=== PATIENT | male | born 2005 | race Caucasian/White ===

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

== ENCOUNTER 2023-10-14 20:13 | Emergency (ER) | payer OTHER, SELFPAY ==
--- NOTE | ~2023-10-14 | CT_ITS ---
EXAMINATION: CT thoracic spine wo con DATE: 10/14/2023 21:27 INDICATION: Mid back pain. Fall. TECHNIQUE: Computed tomography (CT) of the thoracic spine was performed without intravenous contrast. Automated exposure control and iterative reconstruction technique were employed. The dose-length pro duct was 1732.12 mGy-cm. COMPARISON: None FINDINGS: There is 9 degrees dextrocurvature of upper thoracic spine. There is mild chronic anterior wedging of T8-L1 vertebral bodies. There are Schmorl's nodes at multiple levels. There is mildly decr eased disc height at T9-T10 and T11-T12. There is multilevel mild facet joint osteoarthritis. No neur al foraminal stenosis or central canal stenosis. IMPRESSION: 1. No acute fracture. 2. Mild thoracic spondylosis. Reviewed, dictated and finalized at location A.
--- NOTE | ~2023-10-14 | CT_ITS ---
EXAMINATION:CT diagnostic chest wo con DATE: 10/14/2023 21:27 INDICATION: Right posterior lateral rib pain. TECHNIQUE: Computed tomography (CT) of the chest was performed without intravenous contrast. Automate d exposure control and iterative reconstruction technique were employed. The dose-length product (DLP ) was 577.44 mGy-cm. COMPARISON: Chest CT 12/27/2021 FINDINGS: There is no pneumonia or pleural effusion. The heart size is normal. No pericardial effusio n. There is mild bilateral gynecomastia. There is no rib fracture. IMPRESSION: 1. No rib fracture. Reviewed, dictated and finalized at location A. IMPRESSION: 1. No rib fracture.
[2023-10-14 20:17] VITALS: BP 135/68; PULSE 85; RESP 20; TEMP 36.6; O2SAT 100
--- NOTE | 2023-10-14 20:39 | ED.FALL ---
HPI - Fall General Chief Complaint: Fall Stated Complaint: fall, back pain Time Seen by Provider: 10/14/23 20:17 Source: patient Mode of arrival: ambulatory Limitations: no limitations History of Present Illness HPI Narrative: this is a 18-year-old male who presents to the ED with chief complaint of back pain following a fall that happened yesterday. Reports that he got his shoe caught on the top step and he slid down about 6 steps. Reports pain to the mid back and right side of the lower back. Denies head injury or LOC. Denies any further sites of pain or injury. Denies troubles with ambulation. Related Data Home Medications Medication Instructions Recorded Confirmed divalproex 500 mg tablet,extended PO 02/04/20 06/15/22 release 24 hr methylphenidate HCl 54 mg mg PO 02/04/20 06/15/22 tablet,extended release 24 hr (Concerta) sertraline 100 mg tablet mg 02/04/20 06/15/22 Allergies Allergy/AdvReac Type Severity Reaction Status Date / Time aripiprazole [From Abilify] Allergy Other Verified 10/14/23 20:20 Review of Systems Review of Systems: All systems as dictated in [facility] Past Medical History Medical History History of ADHD History of depression Surgical History Surgical History No pertinent past surgical history Family History Family History Unknown Asthma Hypertension Depression Malignant neoplasm of prostate Social History Social History Smoking status: Current some day smoker Tobacco type: cigarettes and e-cigarettes/vaping Exam Narrative: GENERAL: Well-appearing, well-nourished, and in no acute distress. HEAD: Normocephalic, atraumatic. EYES: PERRLA and EOMI. ENT: Nares clear, no rhinorrhea or epistaxis. Mucous membranes moist. Oropharynx without tonsillar hypertrophy exudate or other lesions. NECK: Supple. No adenopathy or masses. CHEST: No respiratory distress. Clear to auscultation. No wheezes rales or rhonchi HEART: Regular rate and rhythm. No murmur heard. Normal peripheral pulses. ABDOMEN: Soft, nontender, nondistended, normal active bowel sounds. MSK: Mild bruising/ abrasion to the right posterolateral ribs/chest wall. Mild tenderness to the midthoracic spine but no other midline spinal tenderness present. SKIN: Warm, dry, no rash. Mild ecchymosis and bruising to the right mid back NEURO: Alert and oriented x4. No focal deficits. PSYCH: Normal mood and affect. Course Vital Signs Vital signs: Vital Signs Temperature 97.9 F 10/14/23 20:17 Pulse Rate 85 10/14/23 20:17 Respiratory Rate 20 10/14/23 20:17 Blood Pressure 135/68 10/14/23 20:17 Pulse Oximetry 100 10/14/23 20:17 Oxygen Delivery Room Air 10/14/23 20:17 Temperature 97.9 F 10/14/23 20:17 Pulse Rate 85 10/14/23 20:17 Respiratory Rate 20 10/14/23 20:17 Blood Pressure 135/68 10/14/23 20:17 Pulse Oximetry 100 10/14/23 20:17 Oxygen Delivery Room Air 10/14/23 20:17 MDM - Fall MDM Narrative Medical decision making narrative: This is a 18-year-old male who presents to the ED with chief complaint of back injury that occurred yesterday. Vitals are normal. Exam shows some bruising to the posterolateral ribs. CT imaging of the thoracic spine, chest are negative for any acute findings. Presentation consistent with rib bruise. He was given Tylenol Motrin here. Pt will be discharged in stable condition. Return precautions given and supportive measures discussed. Pt is understanding and agreeable with plan for discharge and follow-up with PCP. Discharge Plan Discharge Clinical Impression: Bruised rib Patient Disposition: Home, Self-Care Condition: Stable Instructions: Antibiotic Form Additional Instruction
[2023-10-14] MEDS: IBUPROFEN 400 MG TABLET 800 MG PO (20:56)
--- NOTE | 2023-10-14 21:10 | PC.NURSE ---
Patient taken to radiology via w/c at this time.
== END 2023-10-14 21:52 | disposition home or self-care (01) ==
PROVIDERS: Emergency Provider Physician Assistant; PCP Internal Medicine
DX: S20.211A Contusion of right front wall of thorax, initial encounter (principal); F90.9 Attention-deficit hyperactivity disorder, unspecified type; F32.A Depression, unspecified; W10.9XXA Fall (on) (from) unspecified stairs and steps, initial encounter
CPT/HCPCS: 71250; 72128; 99284; A9270

== ENCOUNTER 2023-11-26 23:37 | Emergency (ER) | payer OTHER, SELFPAY ==
[2023-11-26 23:51] VITALS: BP 143/86; PULSE 60; RESP 16; TEMP 36.3; O2SAT 99
--- NOTE | 2023-11-27 01:29 | PC.NURSE ---
Patient decided to leave without being seen by provider.
== END 2023-11-27 01:30 | disposition left against medical advice (07) ==
LOC: ANHED 11-27 01:58
PROVIDERS: PCP Internal Medicine
DX: R10.11 Right upper quadrant pain (principal)
CPT/HCPCS: 99199

== ENCOUNTER 2024-06-03 17:05 | Emergency (ER) | payer OTHER, SELFPAY ==
--- OUTSIDE RECORDS SUMMARY | 2024-06-03 17:08 | XMS_ITS ---
Author Organization [facility] Address [address] [place] [address] Care Team Providers Care Quality Control Head Name Role Phone Karsten Severino Primary Care Provider Allergies Allergen (clinical drug ingredient) Drug/Non Drug Allergy documented on EMR Reaction Allergy Type Onset Date Status aripiprazole Abilify Unknown Drug Allergy Acti ve REASON FOR VISIT Injection Medications Medication SIG (Take, Route, Frequency, Duration) Notes Start Date End Date Status FLUoxetine HCl 20 MG 1 capsule at bedtim e Orally Once a day for 30 days Active hydrOXYzine HCl 25 MG 1 tablet as needed for anxiety Orally Twice a day for 30 days Active Topiramate 50 MG 1.5 tablet Twice a day for 30 days Active Topiramate 25 MG TAKE 1 TABLET BY MOUTH TWICE DAILY for 30 Active Uzedy 75 MG/0.21ML 0.14 mL Subcutaneous Monthly for 30 days Can nursing be alerted when medication comes in so they can contact client to come in to get AL? 01/03/2024 Active Social History Sex Assigned At : Social History Observation Description Sex Assigned At Male Vital Signs Weight 321 lbs 05/17/2024 Blood pressure systolic 128 mm Hg 05/18/19 25 Blood pressure diastolic 80 mm Hg 025 Heart Rate 70 /min 05/17/2024 Oximetry 98 % 05/17/2024 Temperature 97.8 degrees Fahrenheit 05/18/19 25 Respiratory Rate 16 /min 05/17/2024 Encounters Encounter Location Date Provider Diagnosis [address] [place] [address] 05/17/2024 Karsten Severino Schizoaffective disorder, bipolar type F25.0 Assessments Encounter Date Diagnosis (ICD Code) Assessment Notes Treatment Notes Treatment Clinical Notes Section Notes 05/17/2024 Schizoaffective disorder, bipolar type (ICD-10 - F25.0) Plan Of Treatment Next Appt Details Provider Name:Karsten Kamara , 06/14/2024 02:40:00 PM, [address] [facility], [place], [address], Medications Administered Medication Instructions Date of Administration Dosage Notes Uzedy 05/17/2024 75 mg Manufact by [facility]. Pt felipe well. Given in left arm sub Q Progress Notes * Donnie HOLLIDAYDOB: [birth year] (18 yo M)Acc No.[id number]:05/17/2024 Progress Note Patient: Donnie LR Provider: Mary Severino DNP, PMHNP- :2005 A ge:18 Y S ex:Male Date:05/17/2024 [facility] Check In:09:14 AM [employer] Subjective: * Chief Complaints: * I njection * Medical History: * Surgical History: * Hospitalization/Major Diagno stic Procedure: * Medications: T akingTopiramate 25 MG Tablet TAKE 1 TABLET BY MOUTH TWICE DAILY Uzedy 75 MG/0.21ML Suspension Prefilled Syringe 0.14 mL Subcutaneous Monthly , Notes to Pharmacist: Can nursing be alerted when medication comes in so they can contact client to come in to get AL?Topiramate 50 MG Tablet 1.5 tablet Twice a day FLUoxetine HCl 20 MG Capsule 1 capsule at bedtime Orally Once a day hydrOXYzine HCl 25 MG Tablet 1 tablet as needed for anxiety Orally Twice a day Taking Topiramate 25 MG Tablet TAKE 1 TABLET BY MOUTH TWICE DAILY Taking Uzedy 75 MG/0.21ML Suspension Prefilled Syringe 0.14 mL Subcutaneous Monthly , Notes to Pharmacist: Can nursing be alerted when medication comes in so they can contact client to come in to get AL?Taking Topiramate 50 MG Tablet 1.5 tablet Twice a day Taking FLUoxetine HCl 20 MG Capsule 1 capsule at bedtime Orally Once a day Taking hydrOXYzine HCl 25 MG Tablet 1 tablet as needed for anxiety Orally Twice a day * Allergies: A bilifyno[Allergies Verified] Objective: * Vitals: I nitials: ws, Wt:321, BP:128/80, HR:70, Oxygen sat %:98, Temp:97.8, RR:16, Pain scale:0. Assessment: * Assessment: 1. S chizoaffective disorder, bipolar type - F25.0 Plan: * Treatment: * Therapeutic Injections: Uzedy : 75 mg (Dose No:1) (Route: Subcutaneous) given by Oma Sparks RN on subcutaneus * Procedure Codes: 9 6372 THER/PROPH/DIAG INJ, SC/IM * * Sign off status: Completed true * Provider: Mary Severino DNP, PMHNP- Date: 0 05/17/2024 Generated for Nancy monet/Shaka/Everetteitting on: 0 06/03/2024 05:07 PM CDT
--- OUTSIDE RECORDS SUMMARY | 2024-06-03 17:08 | XMS_ITS | Patient Health Record ---
Author Organization Formerly [facility] Address [address] [place] [address] Care Team Providers Care See Wheeler Name Role Phone Karsten Severino Primary Care Provider Debo Jacinto Unavailable [phone] Allergies Allergen (clinical drug ingredient) Drug/Non Drug Allergy documented on EMR Reaction Allergy Type Onset Date Status aripiprazole Abilify Unknown Drug Allergy Acti ve Results Component Value Reference Range Notes Valproic Acid (Depakote)(R), S Reviewed date:10/04/2023 04:14:24 PM Interpretation: Performing Lab:[facility], [address], [place], Phone - [phone], Director - Mihai Notes/Report: Valproic Acid (Depakote)(R),S 15 50-100 ug/m L Detection Limit = 4 <4 indicates None Detected . Toxicity may occur at levels of 100-500. Measurements of free unbound valproic acid may improve the assess- ment of clinical response. Reason For Referral No Information Medications Medication SIG (Take, Route, Frequency, Duration) [...] to get AL? 01/03/2024 Active Social History Tobacco Use: Social History Observation Description Date Details (start date - stop date) Current some da y smoker NA - NA Sex Assigned At : Social History Observation Description Sex Assigned At Male Tobacco Control (Standard) Question Answer Notes Tobacco use: Current some day smoker Additional Findings: Tobacco user Light cigarett e smoker (1-9 cigs/day) Problems Problem Type SNOMED Code ICD Code Onset Dates Problem Status W/U Status Risk Notes Problem Schizoaffective disorder, bipolar type (27631334) Schizoaffective disorder, bipolar type (F25.0) Active confirmed Problem Depression (301240381) Depression (F32.9) Active confirmed Problem Mood disorder (56757513) Mood disorder (F39) Active confirmed Problem Anxiety (62623034) Anxiety (F41.9) Active confi rmed Vital Signs Heart Rate 70 /min 05/17/2024 Temperature 97.8 degrees Fahrenheit 05/17/2024 Respiratory Rate 16 /min 05/17/2024 Blood pressure diastolic 80 mm Hg 05/17/2024 Oximetry 98 % 05/17/2024 Height 70 in 05/10/2024 Blood pressure systolic 128 mm Hg 05/17/2024 Weight 321 lbs 05/17/2024 BMI 46.94 kg/m2 05/10/2024 Encounters Encounter Location Date Provider Diagnosis [address] [address] 10/03/2023 Debo Jacinto [address] [address] 04/02/2024 Karsten Severino [address] [place] [address] 09/28/2023 Debo Jacinto Nutritional counseli ng Z71.3 ; Depression F32.9 ; Anxiety F41.9 ; Mood disorder F39 and Therapeutic drug monitoring Z51.[address] [address] 10/26/2023 Debo Jacinto Depression F32.9 ; Anxiety F41.9 and Mood disorder F39 [address] [place] [address] 12/20/2023 Karsten Severino Nutritional counseli ng Z71.3 ; Mood disorder F39 and Anxiety F41.[address] [place] [address] 01/03/2024 Karsten Severino Anxiety F41.9 ; Schizoaffective disorder, bipolar type F25.0 and Depression F32.[address] [address] 03/01/2024 Karsten Severino Schizoaffective disorder, bipolar type F25.0 and Anxiety F41.[address] [place] [address] 03/29/2024 Karsten Severino Schizoaffective disorder, bipolar type F25.0 ; Anxiety F41.9 and Depression F32.[address] [place] [address] 04/02/2024 Karsten Severino Schizoaffective disorder, bipolar type F25.[address] [address] 05/10/2024 Karsten Severino Schizoaffective disorder, bipolar type F25.0 and Anxiety F41.[address] [address] 05/17/2024 Karsten Severino Schizoaffective disorder, bipolar type F25.[address] [address] 10/04/2023 Debo Jacinto [address] [address] 01/03/2024 Karsten Severino [address] [address] 02/09/2024 Karsten Severino [address] [address] 02/24/2024 Karsten Severino Schizoaffective disorder, bipolar type F25.[address] [address] 03/02/2024 Karsten Severino [address] [place] [address] 03/29/2024 Karsten Severino Rash R21 [facility] [address] [place] [address] 04/02/2024 Karsten Severino [address] [place] [address] 05/11/2024 Karsten Severino [address] [place] [address] 05/30/2024 Karsten Severino Assessments Encounter Date Diagnosis (ICD Code) Assessment Notes Treatment Notes Treatment Clinical Notes Section Notes 09/28/2023 Nutritional counseling (ICD-10 - Z71.3) 10/26/2023 Depression (ICD-10 - F32.9) PHQ-9 score is 1 today, was 3 at last visit; Will refill Fluoxetine 20mg and 40mg to aid depression and anxiety. Pt denies SI/HI at this time. Pt reports that he has been tolerating med well. Denies side effects. 12/20/2023 Mood disorder (ICD-10 - F39) Last psychiatric provider's notes reviewed. Prior medical record reviewed. Client having violent and aggressive behaviors at home towards family, erradiate adherence to medications. Undefined mood disorder in records. Too new to this provider to define yet though high likelihood of bipolarity. MDQ at [facility] last year +5/13, though from interview this provider would likely rate it at more of +9/13. Father has bipolar disorder. Current tx plan has Prozac at 60 mg. Discussed taking this down to 20 mg, starting risperidone at 1 mg and adding topiramate to lessen risk of weight gain and further decrease aggression. 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 snf goal to transition to Uzedy AL if tolerates well with monitoring of prolactin and weight/metabol ics. Mother and client agreeable to this. Haldol AL secondary option should weight escalate too quickly. Hopeful low dose risperidone will hold mood and aggression as client has not been adherent to depakote for some time. 12/20/2023 Nutritional counseling (ICD-10 - Z71.3) Last psychiatric provider's notes reviewed. Prior medical record reviewed. Client having violent and aggressive behaviors at home towards family, erradiate adherence to medications. Undefined mood disorder in records. Too new to this provider to define yet though high likelihood of bipolarity. MDQ at al last year +06/26, though from interview this provider would likely rate it at more of +10/27. Father has bipolar disorder. Current tx plan has Prozac at 60 mg. Discussed taking this down to 20 mg, starting risperidone at 1 mg and adding topiramate to lessen risk of weight gain and further decrease aggression. 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 salvage determiner goal to transition to Uzedy AL if tolerates well with monitoring of prolactin and weight/metabol ics. Mother and client agreeable to this. Haldol AL secondary option should weight escalate too quickly. Hopeful low dose risperidone will hold mood and aggression as client has not been adherent to depakote for some time. 01/03/2024 Schizoaffective disorder, bipolar type (ICD-10 - F25.0) Client with lessened aggression and outbursts after starting risperidone and topiramate. Some minor decreases in depression. Client states most depression r/t loss of grandfather 10 years ago and I remember him a lot during the holidays . Client is agreeable to increase in risperidone to 2 mg (still having daily outbursts on 1 mg, though no longer violent). Client also agreeable to transitioning to AL form eventually as he is still having adherence issues with 70% adherence. Topamax increased to 50 mg BID to aide with aggression and appetite. Would caution any further dose escalation with topirmate to limit cognitive fogging for client. Mother of client told of this side effect and to call office if she sees any issues. 01/03/2024 Anxiety (ICD-10 - F41.9) Client with lessened aggression and outbursts after starting risperidone and topiramate. Some minor decreases in depression. Client states most depression r/t loss of grandfather 10 years ago and I remember him a lot during the holidays . Client is agreeable to increase in risperidone to 2 mg (still having daily outbursts on 1 mg, though no longer violent). Client also agreeable to transitioning to AL form eventually as he is still having adherence issues with 70% adherence. Topamax increased to 50 mg BID to aide with aggression and appetite. Would caution any further dose escalation with topirmate to limit cognitive fogging for client. Mother of client told of this side effect and to call office if she sees any issues. 02/24/2024 Schizoaffective disorder, bipolar type (ICD-10 - F25.0) 03/01/2024 Schizoaffective disorder, bipolar type (ICD-10 - F25.0) Schizoaffectiv e disorder, bipolar type - F25.0 (Primary), R/O bipolar disorder versus other psychotic disorder2.Anxi ety - F41.93.Depress ion - F32.9Client with lessened aggression and outbursts after starting risperidone and topiramate. Some minor decreases in depression. Client states most depression r/t loss of grandfather 10 years ago and I remember him a lot during the holidays . Client is agreeable to increase in risperidone to 2 mg (still having daily outbursts on 1 mg, though no longer violent). Client also agreeable to transitioning to AL form eventually as he is still having adherence issues with 70% adherence. Topamax increased to 50 mg BID to aide with aggression and appetite. Would caution any further dose escalation with topirmate to limit cognitive fogging for client. Mother of client told of this side effect and to call office if she sees any issues.Treatme nt 1.Schizoaffect lazaro disorder, bipolar type Start Uzedy Suspension Prefilled Syringe, 50 MG/0.14ML, 0.14 mL, Subcutaneous, Monthly, 30 days, 1, Refills 1, Notes to Pharmacist: Please let us know if not covered by insurance. Software is telling me it should be. Increase risperiDONE Tablet, 1 MG, 1 tablet at bedtime, Orally, Twice a day, 30 days, 60 Tablet, Refills 0 Increase Topiramate Tablet, 50 MG, 1 tablet, Orally, twice a day, 30 days, 60 Tablet, Refills 1 2.Depression Continue FLUoxetine HCl Capsule, 20 MG, 1 capsule at bedtime, Orally, Once a day, 30 days, 30 Capsule, Refills 1 03/29/2024 Schizoaffective disorder, bipolar type (ICD-10 - F25.0) Client with notably improvements to mood after starting Uzedy. He has been able to stay adherent to his other medications now and not have any anger episodes, frustration tolerance has improved. Client is agreeable to increase in Uzedy from 50 mg to 75 mg and decrease of oral risperidone from 1 mg BID to 1 mg once a day at bedtime with ultimate goal to wean off risperidone completely. Client also agreeable to increase in topiramate to see if helpful for appetite control. Directions on medication plan for next month printed out for client to share with his mother who is his main support. He is aware he will need to come back for his injection once PA approval has been granted. 03/29/2024 Rash (ICD-10 - R21) 04/02/2024 Schizoaffective disorder, bipolar type (ICD-10 - F25.0) 05/10/2024 Schizoaffective disorder, bipolar type (ICD-10 - F25.0) Client doing well overall. He states he would like to discontinue oral risperidone and see how he progresses on 75 mg Uzedy before increasing Uzedy dose. Has had no aggressive incidents at home and feels his mood swings are like normal now. Just normal sad, mad and stuff like that. Not extreme like it was before. No tx plan changes aside from this needed at this time. 05/17/2024 Schizoaffective disorder, bipolar type (ICD-10 - F25.0) 05/10/2024 Anxiety (ICD-10 - F41.9) Client doing well overall. He states he would like to discontinue oral risperidone and see how he progresses on 75 mg Uzedy before increasing Uzedy dose. Has had no aggressive incidents at home and feels his mood swings are like normal now. Just normal sad, mad and stuff like that. Not extreme like it was before. No tx plan changes aside from this needed at this time. 10/26/2023 Anxiety (ICD-10 - F41.9) Will continue Hydroxyzine PRN anxiety. Pt reports that he has been tolerating medication well. . Will consider starting BuSpar if anxiety continues 03/29/2024 Anxiety (ICD-10 - F41.9) Client with notably improvements to mood after starting Uzedy. He has been able to stay adherent to his other medications now and not have any anger episodes, frustration tolerance has improved. Client is agreeable to increase in Uzedy from 50 mg to 75 mg and decrease of oral risperidone from 1 mg BID to 1 mg once a day at bedtime with ultimate goal to wean off risperidone completely. Client also agreeable to increase in topiramate to see if helpful for appetite control. Directions on medication plan for next month printed out for client to share with his mother who is his main support. He is aware he will need to come back for his injection once PA approval has been granted. 03/01/2024 Anxiety (ICD-10 - F41.9) Schizoaffectiv e disorder, bipolar type - F25.0 (Primary), R/O bipolar disorder versus other psychotic disorder2.Anxi ety - F41.93.Depress ion - F32.9Client with lessened aggression and outbursts after starting risperidone and topiramate. Some minor decreases in depression. Client states most depression r/t loss of grandfather 10 years ago and I remember him a lot during the holidays . Client is agreeable to increase in risperidone to 2 mg (still having daily outbursts on 1 mg, though no longer violent). Client also agreeable to transitioning to AL form eventually as he is still having adherence issues with 70% adherence. Topamax increased to 50 mg BID to aide with aggression and appetite. Would caution any further dose escalation with topirmate to limit cognitive fogging for client. Mother of client told of this side effect and to call office if she sees any issues.Treatme nt 1.Schizoaffect lazaro disorder, bipolar type Start Uzedy Suspension Prefilled Syringe, 50 MG/0.14ML, 0.14 mL, Subcutaneous, Monthly, 30 days, 1, Refills 1, Notes to Pharmacist: Please let us know if not covered by insurance. Software is telling me it should be. Increase risperiDONE Tablet, 1 MG, 1 tablet at bedtime, Orally, Twice a day, 30 days, 60 Tablet, Refills 0 Increase Topiramate Tablet, 50 MG, 1 tablet, Orally, twice a day, 30 days, 60 Tablet, Refills 1 2.Depression Continue FLUoxetine HCl Capsule, 20 MG, 1 capsule at bedtime, Orally, Once a day, 30 days, 30 Capsule, Refills 1 01/03/2024 Depression (ICD-10 - F32.9) Client with lessened aggression and outbursts after starting risperidone and topiramate. Some minor decreases in depression. Client states most depression r/t loss of grandfather 10 years ago and I remember him a lot during the holidays . Client is agreeable to increase in risperidone to 2 mg (still having daily outbursts on 1 mg, though no longer violent). Client also agreeable to transitioning to AL form eventually as he is still having adherence issues with 70% adherence. Topamax increased to 50 mg BID to aide with aggression and appetite. Would caution any further dose escalation with topirmate to limit cognitive fogging for client. Mother of client told of this side effect and to call office if she sees any issues. 12/20/2023 Anxiety (ICD-10 - F41.9) Last psychiatric provider's notes reviewed. Prior medical record reviewed. Client having violent and aggressive behaviors at home towards family, erradiate adherence to medications. Undefined mood disorder in records. Too new to this provider to define yet though high likelihood of bipolarity. MDQ at al last year +06/26, though from interview this provider would likely rate it at more of +/13. Father has bipolar disorder. Current tx plan has Prozac at 60 mg. Discussed taking this down to 20 mg, starting risperidone at 1 mg and adding topiramate to lessen risk of weight gain and further decrease aggression. 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 salvage determiner goal to transition to Uzedy AL if tolerates well with monitoring of prolactin and weight/metabol ics. Mother and client agreeable to this. Haldol AL secondary option should weight escalate too quickly. Hopeful low dose risperidone will hold mood and aggression as client has not been adherent to depakote for some time. 09/28/2023 Depression (ICD-10 - F32.9) PHQ-9 score is 3 today, was 7 at last visit; Will refill Fluoxetine 20mg and 40mg to aid depression and anxiety. Pt reports that he has been taking 20mg and 40mg of FLuoxetine and does not want it change dose at this time. Pt denies SI/HI at this time. Pt reports that he has been tolerating med well. Denies side effects. 10/26/2023 Mood disorder (ICD-10 - F39) Will continue Depakote to aid moods; Depakote level was low at 15 on 10/03/2023 but pt reports that he does not want to increase dose at this time. DD: Bipolar Disorder, Autism, Schizophrenia. Pt denies SI/HI at this time 09/28/2023 Anxiety (ICD-10 - F41.9) Will continue Hydroxyzine PRN anxiety. Pt reports that he has been tolerating medication well. . Will consider starting BuSpar if anxiety continues 03/29/2024 Depression (ICD-10 - F32.9) Client with notably improvements to mood after starting Uzedy. He has been able to stay adherent to his other medications now and not have any anger episodes, frustration tolerance has improved. Client is agreeable to increase in Uzedy from 50 mg to 75 mg and decrease of oral risperidone from 1 mg BID to 1 mg once a day at bedtime with ultimate goal to wean off risperidone completely. Client also agreeable to increase in topiramate to see if helpful for appetite control. Directions on medication plan for next month printed out for client to share with his mother who is his main support. He is aware he will need to come back for his injection once PA approval has been granted. 09/28/2023 Mood disorder (ICD-10 - F39) Will continue Depakote to aid moods; Depakote level was low at 31 on 02/25/2023 but pt reports that he has not been taking it daily; will recheck Depakote level at this time. DD: Bipolar Disorder, Autism, Schizophrenia. Pt denies SI/HI at this time 09/28/2023 Therapeutic drug monitoring (ICD-10 - Z51.81) 09/28/2023 Other Discussed treat ment planDiscussed sleep hygiene and caffeine intakeReturn to clinic 4 weeksDepakote level ordered Encouraged counselingDiscussed treatment plan; patient is agreeable and accepting of treatment plan. Patient denies further questions or concerns at this time. The Patient/Guardian asked appropriate questions, appeared to understand the answers, and decided to accept the treatment and continue being followed.The Patient/Guardian is aware of the need to contact the office or return for an earlier appointment if any problems or concerns arise. May also contact the 24-hour crisis hotline ([facility]), refer to the closest emergency room or call 911 if new symptoms arise of existing symptoms worsen; the Patient/Guardian is aware that this would apply to symptoms such as: suicidal ideation, homicidal ideation, high risk behaviors, manic symptoms, psychotic symptoms, physical symptoms, or any other symptoms that may be dangerous to self or others. 10/26/2023 Other Discussed treatment planDiscussed sleep hygiene and caffeine intakeReturn to clinic 4 weeksEncouraged counselingDiscussed treatment plan; patient is agreeable and accepting of treatment plan. Patient denies further questions or concerns at this time. The Patient/Guardian asked appropriate questions, appeared to understand the answers, and decided to accept the treatment and continue being followed.The Patient/Guardian is aware of the need to contact the office or return for an earlier appointment if any problems or concerns arise. May also contact the 24-hour crisis hotline ([facility]), refer to the closest emergency room or call 911 if new symptoms arise of existing symptoms worsen; the Patient/Guardian is aware that this would apply to symptoms such as: suicidal ideation, homicidal ideation, high risk behaviors, manic symptoms, psychotic symptoms, physical symptoms, or any other symptoms that may be dangerous to self or others. Patient made aware that this provider will be leaving [facility] as of 11/09/2023, and she will be transitioned to a new provider at that time. 12/20/2023 Other Discussed sleep hygiene and caffeine intake with encouragement to limit electronic devices an hour before bed and to limit caffeine after 3:00pm. Exercise benefits for mood and health discussed. Psychoeducation regarding psychiatric illness provided. Client was educated about risks and benefits of medication, alternatives to medication, off label uses of medication, suicidal ideation with SSRIs, self-administration and compliance with medication along with how to safely store medication. Verbal informed consent obtained. Client agrees to return sooner if symptoms worsen or if suicidal or homicidal ideations occur. Client has the phone number to the 24-hour crisis line at [facility]. Questions addressed. Client verbalized understanding of all information and is agreeable to treatment plan. Last psychiatric provider's notes reviewed. Prior medical record reviewed. Client having violent and aggressive behaviors at home towards family, erradiate adherence to medications. Undefined mood disorder in records. Too new to this provider to define yet though high likelihood of bipolarity. MDQ at [facility] last year +06/26, though from interview this provider would likely rate it at more of +10/27. Father has bipolar disorder. Current tx plan has Prozac at 60 mg. Discussed taking this down to 20 mg, starting risperidone at 1 mg and adding topiramate to lessen risk of weight gain and further decrease aggression. 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 salvage determiner goal to transition to Uzedy AL if tolerates well with monitoring of prolactin and weight/metabol ics. Mother and client agreeable to this. Haldol AL secondary option should weight escalate too quickly. Hopeful low dose risperidone will hold mood and aggression as client has not been adherent to depakote for some time. 01/03/2024 Other Discussed sleep hygiene and caffeine intake with encouragement to limit electronic devices an hour before bed and to limit caffeine after 3:00pm. Exercise benefits for mood and health discussed. Psychoeducation regarding psychiatric illness provided. Client was educated about risks and benefits of medication, alternatives to medication, off label uses of medication, suicidal ideation with SSRIs, self-administration and compliance with medication along with how to safely store medication. Verbal informed consent obtained. Client agrees to return sooner if symptoms worsen or if suicidal or homicidal ideations occur. Client has the phone number to the 24-hour crisis line at [facility]. Questions addressed. Client verbalized understanding of all information and is agreeable to treatment plan. Client with lessened aggression and outbursts after starting risperidone and topiramate. Some minor decreases in depression. Client states most depression r/t loss of grandfather 10 years ago and I remember him a lot during the holidays . Client is agreeable to increase in risperidone to 2 mg (still having daily outbursts on 1 mg, though no longer violent). Client also agreeable to transitioning to AL form eventually as he is still having adherence issues with 70% adherence. Topamax increased to 50 mg BID to aide with aggression and appetite. Would caution any further dose escalation with topirmate to limit cognitive fogging for client. Mother of client told of this side effect and to call office if she sees any issues. 03/29/2024 Other Discussed sleep hygiene and caffeine intake with encouragement to limit electronic devices an hour before bed and to limit caffeine after 3:00pm. Exercise benefits for mood and health discussed. Psychoeducation regarding psychiatric illness provided. Client was educated about risks and benefits of medication, alternatives to medication, off label uses of medication, suicidal ideation with SSRIs, self-administration and compliance with medication along with how to safely store medication. Verbal informed consent obtained. Client agrees to return sooner if symptoms worsen or if suicidal or homicidal ideations occur. Client has the phone number to the 24-hour crisis line at [facility]. Questions addressed. Client verbalized understanding of all information and is agreeable to treatment plan. Client with notably improvements to mood after starting Uzedy. He has been able to stay adherent to his other medications now and not have any anger episodes, frustration tolerance has improved. Client is agreeable to increase in Uzedy from 50 mg to 75 mg and decrease of oral risperidone from 1 mg BID to 1 mg once a day at bedtime with ultimate goal to wean off risperidone completely. Client also agreeable to increase in topiramate to see if helpful for appetite control. Directions on medication plan for next month printed out for client to share with his mother who is his main support. He is aware he will need to come back for his injection once PA approval has been granted. 05/10/2024 Other Discussed sleep hygiene and caffeine intake with encouragement to limit electronic devices an hour before bed and to limit caffeine after 3:00pm. Exercise benefits for mood and health discussed. Psychoeducation regarding psychiatric illness provided. Client was educated about risks and benefits of medication, alternatives to medication, off label uses of medication, suicidal ideation with SSRIs, self-administration and compliance with medication along with how to safely store medication. Verbal informed consent obtained. Client agrees to return sooner if symptoms worsen or if suicidal or homicidal ideations occur. Client has the phone number to the 24-hour crisis line at [facility]. Questions addressed. Client verbalized understanding of all information and is agreeable to treatment plan. Client doing well overall. He states he would like to discontinue oral risperidone and see how he progresses on 75 mg Uzedy before increasing Uzedy dose. Has had no aggressive incidents at home and feels his mood swings are like normal now. Just normal sad, mad and stuff like that. Not extreme like it was before. No tx plan changes aside from this needed at this time. Plan Of Treatment Next Appt Details Provider Name:Karsten dove, 06/14/2024 02:40:00 PM, [address] [facility] [address], [place], [address], Insurance Providers Payer Name Payer Address Payer Phone Subscriber Number Group Number Insured Name Patient Relationship to Insured Coverage Start Date Coverage End Date [facility] Claims Department [address] [place] [address] [phone] [id number] RonRuss Donnie gongora Self - patient is the insured [facility] [address] [place] [address] [phone] [id number] [facility] fransiscaDonnie Self - patient is the insured 3 Medications Administered Medication Instructions Date of Administration Dosage Notes Uzedy 03/01/2024 50 mg Uzedy 04/02/2024 75 mg Uzedy 05/17/2024 75 mg Manufact by Julio solano. Pt felipe well. Given in left arm sub Q Medical (General) History Medical History History ICD Code overweight Elevated B/P Hospitalization History Reason Date(Month/Year) [facility]
--- OUTSIDE RECORDS SUMMARY | 2024-06-03 17:08 | XMS_ITS | Data Portability ---
Author Organization [facility], Main Office Address [address] [place] [address] Assessment Encounter Date Assessment Date Assessment LastModified by Organization Details LastModified Time 01/19/2024 01/19/2024 upper abdominal pain associated with meals. Gallbladder ultrasound shows sludge but no other abnormalities. We will schedule HIDA scan to further evaluate. Patient will follow-up after testing Not available 01/19/2024 12:46:17 02/16/2024 02/16/2024 upper abdominal pain and discomfort for months. Recent episode appears to be related GI virus. I did scan with ejection fraction less than 0%. Consistent with gallbladder dyskinesia. Had discussion with patient and his mother as to the plan of care and we will schedule for robotic assisted possible open cholecystectom y. Risks and benefits were discussed with the patient and family. Risks include bleeding, infection bile ducts/bowel injuries bile leak Not available 02/16/2024 11:18:40 Plan of Treatment Reminders Order Date Submit Date Provider Last Modified By Organization Details Last Modified Time Details Appointments None record ed. Lab None record ed. Referral None record ed. Procedures None record ed. Surgeries None record ed. Imaging None record ed. Medication Orders None record ed. Patient TargetsNo targets recorded. Patient InstructionsNo instructions recorded. Reason for Referral None Reported. Results Created Date Observation Date Name Description Value Unit Range Abnormal Flag Note LastModifiedBy Organization Detail LastModifiedTime 04/05/1904/05/2024 CBC/C OMPLE TE BLD COUNT W/DIF F white blood cells 8.1 x10'3 /uL 4.2-[address] [facility] (Lab) [address] [place], [address], 04/05/2024 15:35:36 04/05/19 25 04/05/2024 CBC/C OMPLE TE BLD COUNT W/DIF F red blood cells 4.98 x10'6 /uL 4.10-[address] [facility] (Lab) [address] [place], [address], 04/05/2024 15:35:36 04/05/19 25 04/05/2024 CBC/C OMPLE TE BLD COUNT W/DIF F hemoglobin 15.3 g/dL 13.2-[address] [facility] (Lab) [address] [place], [address], 04/05/2024 15:35:36 04/05/19 25 04/05/2024 CBC/C OMPLE TE BLD COUNT W/DIF F hematocrit 44.3 % 39.3-[address] [facility] (Lab) [address] [place], [address], 04/05/2024 15:35:36 04/05/19 25 04/05/2024 CBC/C OMPLE TE BLD COUNT W/DIF F mean red cell volume 89.0 fL 80.0-[address] [facility] (Lab) [address] [place], [address], 04/05/2024 15:35:36 04/05/19 25 04/05/2024 CBC/C OMPLE TE BLD COUNT W/DIF F mean red cell hemoglobin 30.7 pg 27.0-[address] [facility] (Lab) [address] [place], [address], 04/05/2024 15:35:36 04/05/19 25 04/05/2024 CBC/C OMPLE TE BLD COUNT W/DIF F mean RBC HGB concentratio n 34.5 g/dL 31.0-[address] [facility] (Lab) [address] [place], [address], 04/05/2024 15:35:36 04/05/19 25 04/05/2024 CBC/C OMPLE TE BLD COUNT W/DIF F red cell distribution width 13.2 % 11.8-[address] [facility] (Lab) [address] [place], [address], 04/05/2024 15:35:36 04/05/19 25 04/05/2024 CBC/C OMPLE TE BLD COUNT W/DIF F platelets 257 x10'3 /uL 150-[address] [facility] (Lab) [address] [place], [address], 04/05/2024 15:35:36 04/05/19 25 04/05/2024 CBC/C OMPLE TE BLD COUNT W/DIF F mean platelet volume 9.9 fL 9.0-[address] [facility] (Lab) [address] [place], [address], 04/05/2024 15:35:36 04/05/19 25 04/05/2024 CBC/C OMPLE TE BLD COUNT W/DIF F neutrophils 53.1 % 39.0-[address] [facility] (Lab) [address] [place], [address], 04/05/2024 15:35:36 04/05/19 25 04/05/2024 CBC/C OMPLE TE BLD COUNT W/DIF F lymphocytes 32.5 % 16.0-[address] [facility] (Lab) [address] [place], [address], 04/05/2024 15:35:36 04/05/19 25 04/05/2024 CBC/C OMPLE TE BLD COUNT W/DIF F monocytes 9.5 % 5.0-[address] [facility] (Lab) [address] [place], [address], 04/05/2024 15:35:36 04/05/19 25 04/05/2024 CBC/C OMPLE TE BLD COUNT W/DIF F eosinophils 4.3 % 1.0-7. [address] [facility] (Lab) [address] [place], [address], 04/05/2024 15:35:36 04/05/19 25 04/05/2024 CBC/C OMPLE TE BLD COUNT W/DIF F basophils 0.5 % 0.0-2. [address] [facility] (Lab) [address] [place], [address], 04/05/2024 15:35:36 04/05/19 25 04/05/2024 CBC/C OMPLE TE BLD COUNT W/DIF F immature granulocytes 0.1 % 0.00-[address] [facility] (Lab) [address] [place], [address], 04/05/2024 15:35:36 04/05/19 25 04/05/2024 CBC/C OMPLE TE BLD COUNT W/DIF F neutrophils, absolute count 4.30 x10'3 /uL 1.5-8. [address] [facility] (Lab) [address] [place], [address], 04/05/2024 15:35:36 04/05/19 25 04/05/2024 CBC/C OMPLE TE BLD COUNT W/DIF F lymphocytes, absolute count 2.63 x10'3 /uL 1.07-[address] [facility] (Lab) [address] [place], [address], 04/05/2024 15:35:36 04/05/19 25 04/05/2024 CBC/C OMPLE TE BLD COUNT W/DIF F monocytes, absolute count 0.77 x10'3 /uL 0.29-[address] [facility] (Lab) [address] [place], [address], 04/05/2024 15:35:36 04/05/19 25 04/05/2024 CBC/C OMPLE TE BLD COUNT W/DIF F eosinophils, absolute count 0.35 x10'3 /uL 0.02-[address] [facility] (Lab) [address] [place], [address], 04/05/2024 15:35:36 04/05/19 25 04/05/2024 CBC/C OMPLE TE BLD COUNT W/DIF F basophils, absolute count 0.04 x10'3 /uL 0.01-[address] [facility] (Lab) [address] [place], [address], 04/05/2024 15:35:36 04/05/19 25 04/05/2024 CBC/C OMPLE TE BLD COUNT W/DIF F immature granulocytes ,absolute 0.01 x10'3 /uL 0.00-[address] [facility] (Lab) [address] [place], [address], 04/05/2024 15:35:36 04/05/19 25 04/05/2024 CBC/C OMPLE TE BLD COUNT W/DIF F nucleated red blood cells 0.0 % -0 Not Available [facility] (Lab) [address] [place], [address], 04/05/2024 15:35:36 04/05/19 25 04/05/2024 CBC/C OMPLE TE BLD COUNT W/DIF F NRBC# 0.00 x10'3 /uL Not Available [facility] (Lab) [address] [place], [address], 04/05/2024 15:35:36 04/05/19 25 04/05/2024 COMPR EHENS JAMARCUS METAB OLIC PANEL sodium 139 mmol/ L 137-[address] [facility] (Lab) [address] [place], [address], 04/05/2024 16:17:54 04/05/19 25 04/05/2024 COMPR EHENS JAMARCUS METAB OLIC PANEL potassium 4.3 mmol/ L 3.5-5. [address] [facility] (Lab) [address] [place], [address], 04/05/2024 16:17:54 04/05/19 25 04/05/2024 COMPR EHENS JAMARCUS METAB OLIC PANEL chloride 108 mmol/ L 98-[address] [facility] (Lab) [address] [place], [address], 04/05/2024 16:17:54 04/05/19 25 04/05/2024 COMPR EHENS JAMARCUS METAB OLIC PANEL carbon dioxide 23 mmol/ L 22-[address] [facility] (Lab) [address] [place], [address], 04/05/2024 16:17:54 04/05/19 25 04/05/2024 COMPR EHENS JAMARCUS METAB OLIC PANEL anion gap 12.3 mmol/ L 14-[address] [facility] (Lab) [address] [place], [address], 04/05/2024 16:17:54 04/05/19 25 04/05/2024 COMPR EHENS JAMARCUS METAB OLIC PANEL glucose 93 mg/dL 70-[address] [facility] (Lab) [address] [place], [address], 04/05/2024 16:17:54 04/05/19 25 04/05/2024 COMPR EHENS JAMARCUS METAB OLIC PANEL BUN 14 mg/dL 8-[address] [facility] (Lab) [address] [place], [address], 04/05/2024 16:17:54 04/05/19 25 04/05/2024 COMPR EHENS JAMARCUS METAB OLIC PANEL creatinine 1.01 mg/dL 0.66-[address] [facility] (Lab) [address] [place], [address], 04/05/2024 16:17:54 04/05/19 25 04/05/2024 COMPR EHENS JAMARCUS METAB OLIC PANEL GFR >60 Refer ence Range : [place] ge GFR Healt hy Adult : >60 mL/mi n/1.7 3 m2 Chron ic Kidne y Disea se: 15-60 mL/mi n/1.7 3 m2 Kidne y Failu re: <15/m L/min /1.73 m2 www.n iddk. nih.g ov The MDRD study equat ion has not been valid ated in child nakia <18 years of age; pregn ant women ; the elder ly >85 years of age; or in some racia l or ethni c subgr oups, such as Hisut nics. Outsi de the valid ated melissa eters , estim ated GFR is less accur ate, requi ring clini hali judgm ent on a case- by-ca se basis . Clini hali inter preta tion for other races and ages must be made by the clini jagjit. The MDRD study equat ion has not been valid ated for the evalu ation of serum creat inine relat ed to nutri dhara l statu s or medic ation usage . For perso ns <18 years of age, a pedia tric GFR calcu lator is avail able on the F websi te: https ://gavino w.kid atiya.o rg/pr ofess ional s/kdo qi/gf r_cal culat or Not Available [facility] (Lab) [address] [place], [address], 04/05/2024 16:17:54 04/05/19 25 04/05/2024 COMPR EHENS JAMARCUS METAB OLIC PANEL alkaline phosphatase 97 U/L 38-126 Not Available [facility] (Lab) [address] [place], [address], 04/05/2024 16:17:54 04/05/19 25 04/05/2024 COMPR EHENS JAMARCUS METAB OLIC PANEL alanine aminotransfe rase 178 U/L 0-50 high Not Available [facility] (Lab) [address] [place], [address], 04/05/2024 16:17:54 04/05/19 25 04/05/2024 COMPR EHENS JAMARCUS METAB OLIC PANEL aspartate aminotransfe rase 84 U/L 13-38 high Not Available [facility] (Lab) [address] [place], [address], 04/05/2024 16:17:54 04/05/19 25 04/05/2024 COMPR EHENS JAMARCUS METAB OLIC PANEL bilirubin, total 0.90 mg/dL 0.20-[address] [facility] (Lab) [address] [place], [address], 04/05/2024 16:17:54 04/05/19 25 04/05/2024 COMPR EHENS JAMARCUS METAB OLIC PANEL calcium 10.2 mg/dL 8.4-[address] [facility] (Lab) [address] [place], [address], 04/05/2024 16:17:54 04/05/19 25 04/05/2024 COMPR EHENS JAMARCUS METAB OLIC PANEL total protein 7.5 g/dL 6.3-8. [address] [facility] (Lab) [address] [place], [address], 04/05/2024 16:17:54 04/05/19 25 04/05/2024 COMPR EHENS JAMARCUS METAB OLIC PANEL albumin 4.8 g/dL 3.4-5. [address] [facility] (Lab) [address] [place], [address], 04/05/2024 16:17:54 04/05/19 25 04/05/2024 COMPR EHENS JAMARCUS METAB OLIC PANEL globulin 2.7 g/dL 2.6-4. [address] [facility] (Lab) [address] [place], [address], 04/05/2024 16:17:54 04/05/19 25 04/05/2024 COMPR EHENS JAMARCUS METAB OLIC PANEL A/G ratio 1.8 ratio 1.0-2. [address] [facility] (Lab) [address] [place], [address], 04/05/2024 16:17:54 01/24/20 24 01/24/2024 NM, hepat obili madina scan, w/pha rm [facility] [address] [place] [address] [phone] Patien t Name: DONNIE SELLERS Access ion #: [id number] Sex: M : 2005 4 Dictat ed By: Pebbles pang Attend ing Physic apollo: PAYAL CARLIN Orderi Physic apollo: PAYAL CARLIN Exam Date: 2023 09:47 AM Exam Name: NM HEPATO BILIAR Y W PHARM Admitt ing Diagno sis(es ): CLINIC AL INFORM ATION: 18 years old, Male; abdomi nal pain. TECHNI QUE: 8.5 mCi of [place] ec were admini stered intrav enousl y. Images of the upper abdome n were obtain ed at 5 minute interv als up to a total time of 60 minute s. Subseq uently , 2.9 mcg CCK was admini stered intrav enousl y, as per protoc ol, and repeat dynami c anteri or region al images of the liver were obtain ed over an additi onal 30 minute s. A region of intere st was drawn around the gallbl adder, from which a gallbl adder ejecti on fracti on was obtain ed. Time/a ctivit y profil e curves were genera beverly. COMPAR MATTHEW: None FINDIN GS: There is prompt gallbl adder visual izatio n. There is prompt excret ion of activi ty from the biliar y ductal system into the small bowel. There is no eviden ce of acute cholec ystiti s. The gallbl adder ejecti on fracti on is abnorm al and is calcul ated to be -1.2%. IMPRES YOSSI: 1. No scinti graphi c eviden ce of acute cholec ystiti s. 2. Abnorm al gallbl adder ejecti on fracti on consis tent with functi onal gallbl adder disord er in the approp riate clinic al settin g. Electr onical ly Signed by: Pebbles pang at 2023 12:55: 07 PM Page [address] (Imaging) [address] [place], [address], 01/25/2024 14:51:45 01/24/20 24 01/24/2024 imagi ng/di agnos tic resul t No observ ation record ed. [address] [place], [address], 01/25/2024 14:52:14 Result Notes None recorded. Problems Name Problem SNOMED Code Status Onset Date Resolution Date Notes Provider Name and Address Organization Details Recorded Time Anxiety disorder 907259011 Active 2019 Not Available [facility] 3 16:11:29 Fracture of phalanx of foot 80044390 Active 2019 Not Available [facility] 3 16:11:29 Attention deficit hyperactivity disorder 120890901 Active 2019 Not Available [facility] 3 16:11:29 Abdominal pain 14709127 Active 2023 Rashel robles MD [address] [facility], [place], [address] , [facility] 4 15:49:53 Biliary dyskinesia 526673394 Active 2024 Rashel robles MD [address] [facility], [facility] [address], [place], [address] , [facility] [employer] 15:07:40 Problem Notes None recorded. Procedures Surgical History None recorded. Imaging Results Imaging Date Name Status LastModified by Organization Details LastModified Time 01/24/2024 NM, hepatobiliary scan, w/pharm completed [address] (Imaging) [address] [place], [address], 01/25/2024 14:51:45 01/24/2024 imaging/diagnosti c result completed [address] [place], [address], 01/25/2024 14:52:14 Procedure Notes None recorded. Medical Equipment None Reported. Allergies No known drug allergies Medications Name Sig Start Date Stop Date Status Note LastModified by Organization Details LastModified Time azithromyci n 250 mg tablet 10/03 completed Not Available Not Available Not Available sertraline 100 mg tablet TK 2 TS PO QD BEFORE A MEAL active Not Available Not Available No t Available bacitracin 500 unit/gram topical ointment APPLY TO AFFECTED AREA TID FOR 14 DAYS 10/03 completed Not Available Not Available Not Available Concerta 54 mg tablet,exte nded release TK 1 T PO QAM active Not Available Not Available No t Available cephalexin 500 mg capsule 10/03 completed Not Available Not Available Not Available divalproex ER 500 mg tablet,exte nded release 24 hr TK 1 T PO BID WITH MEALS active Not Available Not Available No t Available amoxicillin 875 mg-potassiu m clavulanate 125 mg tablet 10/03 completed Not Available Not Available Not Available divalproex ER 250 mg tablet,exte nded release 24 hr TAKE ONE TABLET BY MOUTH DAILY active Not Available Not Available No t Available methylpheni date CD 40 mg biphasic 30-70 capsule,ext ended release TK 1 C PO ONCE D IN THE MORNING active Not Available Not Available No t Available Vitals Date Recorded Body height Body mass index (BMI) Body mass index (BMI) Percentile per age and sex Body weight Body temperature Heart rate Respiratory rate Provider Name and Address Organization Details Last Updated DateTime 4 182.88 cm 42.7 kg/m2 99 % 643439. 6 g 98.7 [degF] 76 /min 14 /min Hailee Ivey [place] [facility] 4 12:18:13 Date Recorded Body height Body mass index (BMI) Percentile per age and sex Body mass index (BMI) Body weight Body temperature Heart rate Respiratory rate Oxygen saturation Oxygen saturation in Arterial blood by Pulse oximetry Provider Name and Address Organization Details Last Updated DateTime 5 182.88 cm 99 % 42.7 kg/m2 594532. 6 g 98.6 [degF] 76 /min 14 /min 99 % 99 % Hailee Ivey [place] [facility] 5 10:34:40 Social History Question Answer Notes LastModified by Organizat ion Details LastModified Time Tobacco Smoking Status Current Every Day Smoker Hailee Ivey MA [facility] 01/19/2024 12:11:57 What Is Your Level Of Alcohol Consumption? None Information not available 01/19/2024 What Is Your Level Of Caffeine Consumption? None Information not available 01/19/2024 In The 14 Days Before Symptom Onset, Have You Had Close Contact With A Laboratory-confir med COVID-19 While That Case Was Ill? No Information not available 01/19/2024 Are You Currently Employed? Yes Information not available 01/19/2024 What Type Of Diet Are You Following? REGULAR Information not available 01/19/2024 What Is Your Occupation? [employer] Information not available 01/19/2024 What Is Your Relationship Status? Single Information not available 01/19/2024 Do You Use Your Seat Belt Or Car Seat Routinely? Yes Information not available 01/19/2024 Do You Have Smoke And Carbon Monoxide Detectors In Your Home? Yes Information not available 01/19/2024 How Much Tobacco Do You Smoke? 0.5 PPD Information not available 01/19/2024 Do You Use Any Illicit Or Recreational Drugs? No Information not available 01/19/2024 Have You Recently Traveled Abroad? No Information not available 01/19/2024 Do You Have Any Dietary Restrictions? No Information not available 01/19/2024 Sex: Unknown Functional Status None recorded. Mental Status None recorded. Family History Relationship Description Onset Age of this Age Resolved Age Notes LastModified by Organization Details LastModified Time Father No current problems or disability [email or web address] Not available 01/18 12:11:38 Mother No current problems or disability [email or web address] Not available 01/18 12:11:38 Medical History Condition Response DIABETES, TYPE Y DEPRESSION (INCLUDING POST ) Y Past Encounters Encounter ID Performer Location Encounter Start Date Encounter Closed Date Diagnosis/Indication Diagnosis SNOMED-CT Code Diagnosis ICD10 Code Diagnosis Note [id number] Rashel robles MD [facility] General Surgery [address] [address] 01/19/2024 11:39:39 02/09/2024 15:34:24 Abdominal pain 16021072 R10.9 [id number] Rashel robles MD [facility] General Surgery [address] [address] 02/16/2024 10:32:52 02/16/2024 12:51:47 Biliary dyskinesia 221835842 K82.8 Abdominal pain 82475713 R10.9 Health Concerns Section Related Observation LastModified by Organization Detai ls LastModified Time None Recorded Concern Status LastModified by Organization Details LastModified Time None Recorded Advance Directives Directive None Recorded Payers Encounter Date Sequence Insurance Name Policy Number Policy Swift Covered Member ID Swift Member ID Guarantor Name 01/19/2024 1 [facility] ON OR AFTER 08/14/20 (MEDICAID REPLACEMENT - HMO) Donnie johnson [id number] Donnie Holliday 02/16/2024 1 [facility] ON OR AFTER 08/14/20 (MEDICAID REPLACEMENT - HMO) Donnie johnson [id number] Donnie Holliday Notes Date Note Type Note Provider Name and Address Organization Details Recorded Time 01/19/2024 text/html patient complain s of right upper quadrant and right upper abdominal discomfort and pain for the last several weeks states he is aggravated by foods. Denies nausea vomiting fevers chills or any other constitutional symptoms Rashel Gaxiola MD [address] [facility] [address], [place], [address], [employer] [place] [employer] 01/19/2024 15:50:13 02/16/2024 text/html patient recently visited emergency room where upper abdominal pain nausea and vomiting. His mother states that the whole family had the stomach flu at that time. Patient currently not vomiting eating well however, still having discomfort on the upper abdomen and right side. Denies fevers and chills. Following up today for results for HIDA scan Rashel Gaxiola MD [address] [facility] [address], [place], [address], [employer] 02/16/2024 15:08:09
--- OUTSIDE RECORDS SUMMARY | 2024-06-03 17:08 | XMS_ITS ---
Author Organization [facility] Address [address] [place] [address] Care Team Providers Care Pants Cutter Name Role Phone Karsten Severino Primary Care Provider REASON FOR VISIT Uzedy injection Social History Sex Assigned At : Social History Observation Description Sex Assigned At Male Encounters Encounter Location Date Provider Diagnosis [address] [place] [address] 05/11/2024 Karsten Severino Plan Of Treatment Next Appt Details Provider Name:Karsten Kamara , 06/14/2024 02:40:00 PM, [address] [facility] , [place], [address], Progress Notes * Donnie HOLLIDAYDOB: [birth year] (18 yo M)Acc No.[id number]:05/11/2024 Patient: Donnie LR :2005 A ge:18 Y S ex:Male Address:[address] [place] [address] * true * Date: Generated for Printi ng/Faamishg/eTransmitting on: 0 06/03/2024 05:07 PM CDT
--- OUTSIDE RECORDS SUMMARY | 2024-06-03 17:08 | XMS_ITS ---
Author Organization [facility] Address [address] [place] [address] Care Team Providers Care Mechanical Integrity Specialist Name Role Phone Karsten Severino Primary Care Provider REASON FOR VISIT provider change req Social History Sex Assigned At : Social History Observation Description Sex Assigned At Male Encounters Encounter Location Date Provider Diagnosis [address] [place] [address] 05/30/2024 Karsten Severino Plan Of Treatment Next Appt Details Provider Name:Karsten Kamara , 06/14/2024 02:40:00 PM, [address] [facility] , [place], [address], Progress Notes * Donnie HOLLIDAYDOB: [birth year] (18 yo M)Acc No.[id number]:05/30/2024 Patient: Donnie LR :2005 A ge:18 Y S ex:Male Address:[address] [place] [address] * true * Date: Generated for Pauli tierney/Shaka/eTransmitting on: 0 06/03/2024 05:07 PM CDT
--- OUTSIDE RECORDS SUMMARY | 2024-06-03 17:08 | XMS_ITS | Clinical Summary ---
Author Organization [facility] Address [address] [place] [address] Care Team Providers Care Mushroom Farmer Name Role Phone Topper, Zion Wise PA-C Unavailable [phone] Melquiades Guevara PA-C Unavailable [phone] Robbi Tubbs CONSTRUCTION ENGINEER-DIRECTOR CLINICAL DATA Unavailable [phone] Source Comments [facility],non-owned Affiliates and Associated Physician Practices is amultiple site organization consisting of ambulatory clinics and hospital sitesin [place], [place], [place] and [place]. This disclosure is being madepursuant to the Care Everywhere program and may not contain all information available regarding this patient. Last updated 17.[facility] Allergies No known active allergies Medications * Be aware that medications may not be up to date on this document. Alwaysverify current medications with the patient. ibuprofen (MOTRIN) 200 MG tablet Take 400 mg by mouth every 6 hours as needed for Pain Active sertraline (ZOLOFT) 100 MG tablet Take 100 mg by mouth once daily Active methylphenidate CR (CONCERTA) 54 MG tablet Take 54 mg by mouth every morning Active naproxen sodium (ALEVE) 220 MG tablet Take 220 mg by mouth 2 times daily as needed Active divalproex DR (DEPAKOTE) 250 MG tablet Take by mouth at bedtime Active Active Problems Problem Noted Date Diagnosed Date Dog bite of face 11/21/2018 Dog bite of vermilion border of lower lip 2018 Closed fracture of distal en d of right fibula with routine healing 11/16/2018 Closed right ankle fracture, initial encounter 0 10/05/2018 Hematochezia 01/13/2017 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 Chavira) 03/13/15 LN2 cryo x 2 cycles, pet pt request; education on other available treatment options provided Family History Medical History Relation Name Comments Other Mother achalasia Relation Name Status Comments Mother Social History Tobacco Use Types Packs/Day Years Used Date Smoking Tobacco: Passive Smo ke Exposure - Never Smoker Smokeless Tobacco: Never Comments:parents smoke Alcohol Use Standard Drinks/Week Comments Never 0 (1 standard drink = 0.6 oz pur e alcohol) AUDIT-C Answer Date Recorded Q1: How often do you have a drink containing alc ohol? Never 05/28/2019 Average Number of Drinks Not on file 020 Frequency of Binge Drinking Not on file 05/15 Sex and Gender Information Value Date Recorded Sex Assigned at Not on file Legal Sex Male 7:38 AM PAPER FEEDER Gender Identity Not on file Sexual Orientation Not on file Last Filed Vital Signs Vital Sign Reading Time Taken Comments Blood Pressure 124/80 11/23/2019 5:37 AM CDT Pulse 88 11/23/2019 5:37 AM CDT Temperature 36.9 C (98.4 F) 11/23/2019 5:37 AM CDT Respiratory Rate 18 11/23/2019 5:37 AM CDT Oxygen Saturation 96% 11/23/2019 2:24 AM CDT Inhaled Oxygen Concentration 100% 11:45 AM PAPER FEEDER Weight 126.9 kg (279 lb 12.2 oz) 11/23/2019 2:24 AM CDT Height 177 cm (5' 9.69 ) 10/05/2018 10: 34 AM CDT Body Mass Index - - Plan of Treatment Health Maintenance Due Date Last Done Comments HIV SCREENING 07/02/2018 HPV VACCINE (1 - Male 3-dose series) 07/02/2018 MENINGOCOCCAL (Group B) VACC INE SHARED DECISION-MAKING (1 of 2 - Standard) 2019 HEPATITIS C SCREENING 06/28/2021 DTAP/TDAP/TD VACCINES (1 - Tdap) 07/02/2022 HEPATITIS B VACCINE (1 of 3 - 19+ 3-dose series) 07/02/2022 COVID-19 VACCINE (2023-2 5 season) 2023 DEPRESSION SCREENING 02/15/2024 INFLUENZA VACCINE (Season Ended) 2024 03/14/19 14 ZOSTER VACCINE (1 of 2) 07/02/2053 HIB VACCINE Aged Out No longer eligi ble based on patient's age to complete this topic MENINGOCOCCAL GROUPS A/C/Y/W VACCINE Aged Out No longer eligible b ased on patient's age to complete this topic PNEUMOCOCCAL VACCINE Aged Out No long er eligible based on patient's age to complete this topic Insurance [facility] Care Teams Mushroom Farmer Relationship Specialty Start Date End Date Zion Puente PA-C [address] [place] [address] Physician Head Of Design 10/19/18 Melquiades Guevara, LESLI [address] [place] [address] Orthopedic 11/16/18 Robbi Tubbs, CONSTRUCTION ENGINEER-DIRECTOR CLINICAL DATA [address] [place] [address] Nurse Practitioner Family 06/21/19
--- OUTSIDE RECORDS SUMMARY | 2024-06-03 17:08 | XMS_ITS | Encounter Summary ---
Author Organization [facility] Address [address] [place] [address] Care Team Providers Care Director Industrial Relations Name Role Phone Topper, Zion Wise PA-C Unavailable [phone] Melquiades GuevaraC Unavailable [phone] Robbi Tubbs GOLF CLUB MAKER-SEWING TRIMMER Unavailable [phone] Janis Chavira MD Primary Care Provider [phone] Encounter Details Date Type Department Care Team (Late st Contact Info) Description 11/23/2019 Ophth Exam [facility] Pediatrics - Ophthalmology [address] [place] [address] Sam Wooten MD [address] [place] [address] [place] [address] Social History Tobacco Use Types Packs/Day Years [...] on file Legal Sex Male 7:38 AM E D TECH Gender Identity Not on file Sexual Orientation Not on file documented as of this encounter Functional Status * Is person deaf or have serious hearing difficulty? Answer Date of Assessment Author No 03/09/2017 12:31 PM E D TECH Warner Richter RN * Is person blind or have serious difficulty seeing? Answer Date of Assessment Author No 03/09/2017 12:31 PM Warner Rodriguez RN * Does person have serious difficulty walking/climbing stairs? Answer Date of Assessment Author No 03/09/2017 12:31 PM Warner Rodriguez RN * Does person have difficulty dressing/bathing? Answer Date of Assessment Author No 03/09/2017 12:31 PM Warner Rodriguez RN * Does person have difficulty doing errands alone? Answer Date of Assessment Author Yes 03/09/2017 12:31 PM Warner Rodriguez RN documented as of this encounter Mental Status * Does person have difficulty concentrating/remembering/making decisions? Answer Entry Date Author Yes 03/09/2017 12:31 PM Warner Rodriguez RN documented in this encounter Plan of Treatment Not on file documented as of this encounter Visit Diagnoses Not on filedocumented in this encounter Care Teams Director Industrial Relations Relationship Specialty Start Date End Date Janis Chavira MD [address] [address] PCP - General Pediatrics 07/05/19 03/27/24 Zion Puente PA-C [address] [place] [address] Physician Machine Baster 10/19/18 Melquiades Guevara PA-C [address] [place] [phone] Orthopedic 11/16/18 Robbi Tubbs, GOLF CLUB MAKER-SEWING TRIMMER [address] [place] [address] Nurse Practitioner Family 06/21/19 documented as of this encounter
[2024-06-03 17:39] VITALS: BP 133/87; PULSE 114; RESP 22; O2SAT 97
[2024-06-03] MEDS: ONDANSETRON INJ 4 MG/2 ML VIAL IV PUSH (18:06)
[2024-06-03] MEDS: LACTATED RINGERS 1,000 ML 999 ML IV CONT (18:06)
[2024-06-03 18:08] VITALS: BP 133/87; PULSE 107; RESP 24; O2SAT 96
[2024-06-03 18:15] LABS: Add Urine Microscopic? NO; Appearance Urine Clear (Clear); Bilirubin Urine Negative (Negative); Blood Urine Negative (Negative); Color Urine Yellow (Yellow); Glucose Urine UA Negative (Negative); Ketones Urine Negative (Negative); Leukocyte Esterase Ur Negative LEU/UL (Negative); Nitrate Urine Negative (Negative); Protein Urine Negative (Negative); Specific Grav Ur 1.023 (1.001-1.035); Urobilinogen Urine 0.2 mg/dL (<2.0)
--- NOTE | 2024-06-03 18:19 | ED.GENADULT ---
HPI - General Adult General Chief complaint: Nausea/Vomiting/Diarrhea Stated complaint: Chest pain, vomiting, BP 154/80 Time Seen by Provider: 06/03/24 17:27 History of Present Illness HPI narrative: 18-year-old male presents to the emergency department for evaluation for nausea vomiting. Related Data Home Medications ?Medication ?Instructions ?Recorded ?Confirmed ?Last Taken ?Type divalproex 500 mg tablet,extended PO 02/04/20 06/15/22 Unknown History release 24 hr methylphenidate HCl 54 mg mg PO 02/04/20 06/15/22 Unknown History tablet,extended release 24 hr (Concerta) sertraline 100 mg tablet mg 02/04/20 06/15/22 Unknown History Allergies Allergy/AdvReac Type Severity Reaction Status Date / Time aripiprazole (From Abilify) Allergy Other Verified 06/03/24 17:41 Review of Systems Review of Systems: All systems reviewed & are unremarkable except as noted in HPI and below PMFSH Past Medical History Medical History History of ADHD History of depression Surgical History Surgical History No pertinent past surgical history Family History Family History Unknown Asthma Hypertension Depression Malignant neoplasm of prostate Social History Social History Smoking status: Current some day smoker Tobacco type: cigarettes and e-cigarettes/vaping Exam Narrative: APPEARANCE: Well appearing, no pain, no distress, well-nourished. HEAD: normocephalic, atraumatic. EYES: PERRLA/EOMI, conjunctivae clear. NOSE: Normal no drainage EARS:TMS clear with good light reflex. THROAT: Pharynx clear, no exudate. NECK: Supple. No adenopathy, no masses. RESPIRATORY: Airway patent, respirations nonlabored. Clear to auscultation bilaterally, no rales, rhonchi, wheezing. CARDIOVASCULAR: Regular rate and rhythm without murmurs rubs or gallops. ABDOMINAL: Soft, nontender, nondistended, normal bowel sounds MUSCULOSKELETAL: Moves all extremities. Strength/ROM intact, No edema, No calf tenderness. NEURO: Alert. Cranial nerves II through XII intact. Grossly intact SKIN: Warm, dry. Normal Color Course Vital Signs Vital signs: Vital Signs Pulse Rate 114 H 06/03/24 17:39 Respiratory Rate 22 H 06/03/24 17:39 Blood Pressure 133/87 06/03/24 17:39 Pulse Oximetry 97 06/03/24 17:39 Pulse Rate 105 H 06/03/24 19:06 Respiratory Rate 20 06/03/24 19:06 Blood Pressure 133/87 06/03/24 18:08 Pulse Oximetry 97 06/03/24 19:06 Medical Decision Making MDM Narrative Medical decision making narrative: 18-year-old male present to the emergency department for evaluation for nausea vomiting and diarrhea. Patient was treated with IV fluids and patient's labs had no significant abnormalities. Patient did feel improved with treatment. Patient was discharged home with a clear liquid diet. Differential Diagnosis Differential Diagnosis: Nausea vomiting diarrhea, gastritis, colitis, diverticulitis Vital Signs Vital Signs: Vital Signs Pulse Rate 114 H 06/03/24 17:39 Respiratory Rate 22 H 06/03/24 17:39 Blood Pressure 133/87 06/03/24 17:39 Pulse Oximetry 97 06/03/24 17:39 Pulse Rate 105 H 06/03/24 19:06 Respiratory Rate 20 06/03/24 19:06 Blood Pressure 133/87 06/03/24 18:08 Pulse Oximetry 97 06/03/24 19:06 Lab Data Lab results reviewed: Yes I reviewed the patient's lab results. 06/03/24 18:08 06/03/24 18:08 Labs: Lab Results 06/03/24 06/03/24 Range/Units 17:50 18:08 WBC 12.2 H (4.5-10.0) K/mm3 RBC 5.01 (4.6-6.20) M/mm3 Hgb 15.0 (14.0-18.0) g/dL Hct 44.5 (42.0-52.0) % MCV 88.8 (80-100) fl MCH 29.9 (26-34) pg MCHC 33.7 (32-36) g/dl RDW 13.2 (11.5-14.5) % Plt Count 219 (150-375) k/mm3 MPV 9.9 (7.4-10.4) fl Immature Gran % (Auto) 0.2 (0-0.5) % Neut % (Auto) 86.9 H (45.5-73.1) % Lymph % (Auto) 6.1 L (18.3-44.2) % [place] % (Auto) 4.8 (2.6-8.5) % Eos % (Auto) 1.7 (0-4.4) % Baso % (Auto) 0.3 (0.2-1.2) % Lymph # (Auto) 0.75 L (0.9-3.2) K/mm3 [place] # (Auto) 0.6 (0.1-0.6) K/mm3 Eos # (Auto) 0.2 (0-0.3) K/mm3 Baso # (Auto) 0.0 (0.0-0.1) K/mm3 Abs Immat Gran (auto) 0.03 (0.00-0.031) K/mm3 Absolute Neuts (auto) 10.6 H (1.3-6.7) K/mm3 Absolute Nucleated RBC 0.000 (0.0-0.012) K/mm3 Nucleated RBC % 0.0 (0.0-0.2) % Sodium 138 (137-145) mmol/L Potassium 4.0 (3.4-5.0) mmol/L Chloride 104 (98-107) mmol/L Carbon Dioxide 22 (22-30) mmol/L Anion Gap 12 (4-12) mmol/L BUN 12 (9-20) mg/dL Creatinine 1.06 (0.7-1.3) mg/dL Estim Creat Clear Calc Not Reportable Estimated GFR > 60 (59 - ) Glucose 98 (65-110) mg/dL Calcium 9.1 (8.4-10.2) mg/dL Total Bilirubin 0.8 (0.2-1.3) mg/dL AST 99 H (17-59) U/L ALT 180 H (6-50) U/L Alkaline Phosphatase 101 (38-126) U/L Total Protein 8.0 (6.3-8.2) g/dL Albumin 4.7 (3.5-5.1) g/dL Urine Color Yellow (Yellow) Urine Appearance Clear (Clear) Urine pH 5.0 (5.0-9.0) Ur Specific Slater 1.023 (1.001-1.035) Urine Protein Negative (Negative) mg/dL Urine Glucose (UA) Negative (Negative) mg/dL Urine Ketones Negative (Negative) mg/dL Ur Blood (Man) Negative (Negative) Urine Nitrate Negative (Negative) Urine Bilirubin Negative (Negative) Urine Urobilinogen 0.2 (<2.0) mg/dL Leukocyte Esterase Rfl Negative (Negative) PAPA/UL Discharge Plan Discharge Clinical Impression: Nausea & vomiting Patient Disposition: Home Condition: Stable Instructions: Antibiotic Form, Clear Liquid Diet (ED), Acute Nausea and Vomiting (ED) Additional Instructions: Zofran as needed for nausea control. Clear liquid diet for the next 3-5 days. Have close follow-up with your primary care physician. If you have any worsening symptoms and please call or return to the emergency department. Patient Language: Luxembourgish Prescriptions: New ondansetron 4 mg tablet,disintegrating 4 mg PO Q8H PRN (Reason: nausea and vomiting) Qty: 14 0RF No Action sertraline 100 mg tablet methylphenidate HCl [Concerta] 54 mg tablet extended release 24hr PO divalproex 500 mg tablet extended release 24 hr PO ondansetron 4 mg tablet,disintegrating 4 mg PO Q8H PRN (Reason: nausea and vomiting) Qty: 14 0RF ibuprofen 800 mg tablet 800 mg PO TID PRN (Reason: pain) Qty: 14 0RF ibuprofen 800 mg tablet 800 mg PO TID PRN (Reason: pain) 7 Days Qty: 21 0RF acetaminophen 500 mg tablet 1,000 mg PO TID PRN (Reason: jacquie) 7 Days Qty: 42 0RF methocarbamol 750 mg tablet 1,500 mg PO TID Qty: 35 0RF Follow-up/Referrals: Edin,MD Tulio [Primary Care Provider] -
[2024-06-03 18:21] LABS: Basophils Percent Auto 0.3 % (0.2-1.2); Eosinophils Absolute Auto 0.2 K/mm3 (0-0.3); Eosinophils Percent Auto 1.7 % (0-4.4); Hematocrit 44.5 % (42.0-52.0); Immature Granulocyte Absolute 0.03 K/mm3 (0.00-0.031); Immature Granulocyte Percent A 0.2 % (0-0.5); Lymphocytes Absolute Auto 0.75 K/mm3 (0.9-3.2); Lymphocytes Percent Auto 6.1 % (18.3-44.2); Mean Corpuscular HGB Conc 33.7 g/dl (32-36); Mean Corpuscular Hemoglobin 29.9 pg (26-34); Mean Corpuscular Volume 88.8 fl (80-100); Mean Platelet Volume 9.9 fl (7.4-10.4); Monocytes Absolute Auto 0.6 K/mm3 (0.1-0.6); Monocytes Percent Auto 4.8 % (2.6-8.5); Neutrophils Absolute Auto 10.6 K/mm3 (1.3-6.7); Neutrophils Percent Auto 86.9 % (45.5-73.1); Platelet Count Result 219 k/mm3 (150-375); Red Blood Count 5.01 M/mm3 (4.6-6.20); Red Cell Distribution Width 13.2 % (11.5-14.5); White Blood Count 12.2 K/mm3 (4.5-10.0)
--- OUTSIDE RECORDS SUMMARY | 2024-06-03 18:27 | XMS_ITS | Clinical Summary ---
Author Organization [email or web address] Address [address] [place] [address] Care Team Providers Care Senior Insight Manager International Name Role Phone Topper, Zion Wise PA-C Unavailable [phone] Melquiades Guevara PA-C Unavailable [phone] Robbi Tubbs MEDICAL OFFICE SECRETARY-ROCK CRUSHER OPERATOR Unavailable [phone] Source Comments [email or web address],non-owned Affiliates and Associated Physician Practices is amultiple site organization consisting of ambulatory clinics and hospital sitesin [place], [place], [place] and [place]. This disclosure is being madepursuant to the Care Everywhere program and may not contain all information available regarding this patient. Last updated 17.[email or web address] Allergies No known active allergies Medications * [...] on file Legal Sex Male 7:38 AM INSURANCE COUNSELOR Gender Identity Not on file Sexual Orientation Not on file Last Filed Vital Signs Vital Sign Reading Time Taken Comments Blood Pressure 124/80 11/23/2019 5:37 AM CDT Pulse 88 11/23/2019 5:37 AM CDT Temperature 36.9 C (98.4 F) 11/23/2019 5:37 AM CDT Respiratory Rate 18 11/23/2019 5:37 AM CDT Oxygen Saturation 96% 11/23/2019 2:24 AM CDT Inhaled Oxygen Concentration 100% 11:45 AM INSURANCE COUNSELOR Weight 126.9 kg (279 lb 12.2 oz) [...] patient's age to complete this topic Insurance [facility] Care Teams Senior Insight Manager International Relationship Specialty Start Date End Date Zion Puente PA-C [address] [place] [address] Physician Organic Search Lead 10/19/18 Melquiades Guevara, LESLI [address] [place] [address] Orthopedic 11/16/18 Robbi Tubbs, MEDICAL OFFICE SECRETARY-ROCK CRUSHER OPERATOR [address] [place] [address] Nurse Practitioner Family 06/21/19
--- OUTSIDE RECORDS SUMMARY | 2024-06-03 18:27 | XMS_ITS | Encounter Summary ---
Author Organization [facility] Address [address] [place] [address] Care Team Providers Care Options Trader Name Role Phone Topper, Zion Wise PA-C Unavailable [phone] Melquiades GuevaraC Unavailable [phone] Robbi Tubbs WALL TAPER-MATERIAL REQUISITIONER Unavailable [phone] Janis Chavira MD Primary Care Provider [phone] Encounter Details Date Type Department Care Team (Late st Contact Info) Description 11/23/2019 Ophth Exam [facility] Pediatrics - Ophthalmology [address] [place] [address] Sam Wooten MD [address] [place] [address] [place] [address] Social History Tobacco Use Types Packs/Day Years [...] on file Legal Sex Male 7:38 AM TURNING MACHINE SET UP OPERATOR Gender Identity Not on file Sexual Orientation Not on file documented as of this encounter Functional Status * Is person deaf or have serious hearing difficulty? Answer Date of Assessment Author No 03/09/2017 12:31 PM TURNING MACHINE SET UP OPERATOR Warner Richter RN * Is person blind [...] on filedocumented in this encounter Care Teams Options Trader Relationship Specialty Start Date End Date Janis Chavira MD [address] [address] PCP - General Pediatrics 07/05/19 03/27/24 Zion Puente PA-C [address] [place] [address] Physician Verifier 10/19/18 Melquiades Guevara PA-C [address] [place] [phone] Orthopedic 11/16/18 Robbi Tubbs, WALL TAPER-MATERIAL REQUISITIONER [address] [place] [address] Nurse Practitioner Family 06/21/19 documented as of this encounter
[2024-06-03 18:33] LABS: Alanine Aminotransferase 180 U/L (6-50); Albumin Level 4.7 g/dL (3.5-5.1); Alkaline Phosphatase 101 U/L (38-126); Anion Gap 12 mmol/L (4-12); Aspartate Amino Transferase 99 U/L (17-59); Bilirubin,Total 0.8 mg/dL (0.2-1.3); Blood Urea Nitrogen 12 mg/dL (9-20); Calcium 9.1 mg/dL (8.4-10.2); Carbon Dioxide 22 mmol/L (22-30); Chloride 104 mmol/L (98-107); Estimated Glomerular Filt Rate > 60; Glucose 98 mg/dL (65-110); Sodium 138 mmol/L (137-145)
[2024-06-03 19:06] VITALS: PULSE 105; RESP 20; O2SAT 97
--- NOTE | 2024-06-03 19:12 | PC.NURSE ---
Report received from THERESA Johnson. Assumed care of patient at this time.
== END 2024-06-03 19:29 | disposition home or self-care (01) ==
PROVIDERS: Emergency Provider Emergency Medicine; PCP Internal Medicine
DX: R11.2 Nausea with vomiting, unspecified (principal); F90.9 Attention-deficit hyperactivity disorder, unspecified type; F32.A Depression, unspecified; F17.210 Nicotine dependence, cigarettes, uncomplicated; F17.290 Nicotine dependence, other tobacco product, uncomplicated; Z79.899 Other long term (current) drug therapy
CPT/HCPCS: 36415; 80053; 81003; 85025; 96361; 96374; 99284; J2405; J7120